=== PATIENT | male | born 1965 | race Caucasian/White ===

== ENCOUNTER 2023-10-11 11:12 | Emergency (ER) | payer BC, OTHER ==
--- NOTE | 2023-10-11 11:25 | ED ---
Skin/Abscess/FB HPI - General Chief complaint: Skin/Abscess/Foreign Body Stated complaint: skin issues B hands/arms/feet Time Seen by Provider: 10/11/23 11:25 Source: patient, RN notes reviewed Mode of arrival: ambulatory Limitations: no limitations - History of Present Illness Initial comments: This is a 58-year-old male presents emergency department chief complaint of skin manifestations that are pruritic. Patient states that he was evaluated at [facility] on Monday he was diagnosed with scabies and sent home with antibiotics, topical antifungal cream and topical antiparasitic ointment. Patient states that the peritonitis and rash has worsened since weekend is complaining of peeling on his palms and feet. He states that he has tried use emollients at home with no relief. He denies fevers, chills, nausea, vomiting, abdominal pain, shortness of breath, difficulty breathing, headaches. Denies use of new soaps, lotions, detergents, perfumes, medications. MD complaint: rash, lesion - Related Data Previous Rx's Medication Instructions Recorded Promethazine [Phenergan] 25 mg PO Q6HR #5 tablet 12/04/14 Ivermectin 3 mg PO ONETIME #2 tablet 10/11/23 Allergies Allergy/AdvReac Type Severity Reaction Status Date / Time No Known Allergies Allergy Verified 12/04/14 11:22 Review of Systems ROS Statement: Those systems with pertinent positive or pertinent negative responses have been documented in the HPI. ROS Other: All systems not noted in ROS Statement are negative. 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 and Developmental dysplasia of the hip (DDH), History of Any Multi-Drug Resistant Organisms: None Reported Past Surgical History: Adenoidectomy, Joint Replacement, Orthopedic Surgery Additional Past Surgical History / Comment(s): Bones removed from ankles Past Psychological History: No Psychological Hx Reported Smoking Status: Current every day smoker Past Alcohol Use History: None Reported Past Drug Use History: Marijuana General Exam Limitations: no limitations General appearance: alert, in no apparent distress, cachectic Head exam: Present: atraumatic, normocephalic, normal inspection Eye exam: Present: normal appearance, PERRL, EOMI. Absent: scleral icterus, conjunctival injection, periorbital swelling ENT exam: Present: normal exam, mucous membranes moist Neck exam: Present: normal inspection. Absent: tenderness, meningismus, lymphadenopathy Respiratory exam: Present: normal lung sounds bilaterally. Absent: respiratory distress, wheezes, rales, rhonchi, stridor Cardiovascular Exam: Present: regular rate, normal rhythm, normal heart sounds. Absent: systolic murmur, diastolic murmur, rubs, gallop, clicks GI/Abdominal exam: Present: soft, normal bowel sounds. Absent: distended, tenderness, guarding, rebound, rigid Extremities exam: Present: normal inspection, full ROM, normal capillary refill. Absent: tenderness, pedal edema, joint swelling, calf tenderness Back exam: Present: normal inspection Neurological exam: Present: alert, oriented X3, CN II-XII intact Psychiatric exam: Present: normal affect, normal mood Expanded Distribution of rash: generalized, involves palms/soles, RUE, LUE, RLE, LLE Description of rash: Present: erythematous, macular, crusting, other (exematous) Course Vital Signs 10/11/23 10/11/23 11:13 12:48 Temperature 98.7 F 97.8 F Pulse Rate 92 67 Respiratory 18 20 Rate Blood Pressure 149/74 131/80 O2 Sat by Pulse 99 98 Oximetry Medical Decision Making - Medical Decision Making Was pt. sent in by a medical professional or institution (DUSTIN Suggs, ACADEMIC RECORDS SPECIALIST, urgent care, hospital, or long term...) When possible be specific @ -No Did you speak to anyone other than the patient for history (EMS, parent, family, police, friend...)? What history was obtained from this source @ -No Did you review nursing and triage notes (agree or disagree)? Why? @ -I reviewed and agree with nursing and triage notes Were old charts reviewed (outside hosp., previous admission, EMS record, old EKG, old radiological studies, urgent care reports/EKG's, long term records)? Report findings @ -No old charts were reviewed Differential Diagnosis (chest pain, altered mental status, abdominal pain women, abdominal pain men, vaginal bleeding, weakness, fever, dyspnea, syncope, headache, dizziness, GI bleed, back pain, seizure, CVA, palpatations, mental health, musculoskeletal)? @ -Contact dermatitis, allergic dermatitis, eczema, serpiginous rash, this list is not all inclusive EKG interpreted by me (3pts min.). @ -None X-rays interpreted by me (1pt min.). @ -None done CT interpreted by me (1pt min.). @ -None done U/S interpreted by me (1pt. min.). @ -None done What testing was considered but not performed or refused? (CT, X-rays, U/S, labs)? Why? @ -None What meds were considered but not given or refused? Why? @ -None Did you discuss the management of the patient with other professionals (professionals i.e. DrHeriberto, PA, ACADEMIC RECORDS SPECIALIST, lab, RT, psych nurse, social media marketer, parks and recreation worker, teacher, special officer, binder caser)? Give summary @ -No Was smoking cessation discussed for >3mins.? @ -No Was critical care preformed (if so, how long)? @ -No Were there social determinants of health that impacted care today? How? (Homelessness, low income, unemployed, alcoholism, drug addiction, transportation, low edu. Level, literacy, decrease access to med. care, intermediate, rehab)? @ -No Was there de-escalation of care discussed even if they declined (Discuss DNR or withdrawal of care, Hospice)? DNR status @ -No What co-morbidities impacted this encounter? (DM, HTN, Smoking, COPD, CAD, Cancer, CVA, ARF, Chemo, Hep., AIDS, mental health diagnosis, sleep apnea, mo rbid obesity)? @ -None Was patient admitted / discharged? Hospital course, mention meds given and ro dieudonne, prescriptions, significant lab abnormalities, going to OR and other pertinent info. @ -Charge. 58-year-old male with a generalized pruritic rash. Exam is consistent with widespread scabies rash. Additionally, patient is noted to have athlete's foot of the feet. He is provided with a dose of Benadryl to control itching pending labs. CBC, CMP and lactate within normal limits. Patient will be sent a prescription for oral ivermectin that he will take 1 tablet now and the next dose in a week. He is also provided with a dose of steroids to help decrease inflammation. Recommend that patient continue use of antibiotics and use topical cream of antifungal on the feet to continue with athlete's foot. All questions answered at bedside and strict return parameters discussed with the patient he is verbalized understanding. Recommend he follow-up with his primary care provider next week for further evaluation. Case discussed with Dr. Trevizo Undiagnosed new problem with uncertain prognosis? @ -No Drug Therapy requiring intensive monitoring for toxicity (Heparin, Nitro, Insulin, Cardizem)? @ -No Were any procedures done? @ -No Diagnosis/symptom? @ -tinea pedis, scabies manifestation Acute, or Chronic, or Acute on Chronic? @ -acute Uncomplicated (without systemic symptoms) or Complicated (systemic symptoms)? @ -uncomplicated Side effects of treatment? @ -No Exacerbation, Progression, or Severe Exacerbation? @ -No Poses a threat to life or bodily function? How? (Chest pain, USA, SD, pneumonia, PE, COPD, DKA, ARF, appy, cholecystitis, CVA, Diverticulitis, Homicidal, Suicidal, threat to staff... and all critical care pts) @ -No - Lab Data Result diagrams: 10/11/23 12:05 10/11/23 12:05 Lab Results 10/11/23 10/11/23 10/11/23 Range/Units 12:05 12:05 12:05 WBC 10.2 (3.8-10.6) k/uL RBC 4.96 (4.30-5.90) m/uL Hgb 15.4 (13.0-17.5) gm/dL Hct 46.8 (39.0-53.0) % MCV 94.3 (80.0-100.0) fL MCH 31.1 (25.0-35.0) pg MCHC 32.9 (31.0-37.0) g/dL RDW 13.3 (11.5-15.5) % Plt Count 335 (150-450) k/uL MPV 7.4 Neutrophils % 68 % Lymphocytes % 18 % Monocytes % 6 % Eosinophils % 6 % Basophils % 1 % Neutrophils # 7.0 (1.3-7.7) k/uL Lymphocytes # 1.8 (1.0-4.8) k/uL Monocytes # 0.6 (0-1.0) k/uL Eosinophils # 0.6 (0-0.7) k/uL Basophils # 0.1 (0-0.2) k/uL Sodium 136 L (137-145) mmol/L Potassium 4.5 (3.5-5.1) mmol/L Chloride 109 H (98-107) mmol/L Carbon Dioxide 16 L (22-30) mmol/L Anion Gap 11 mmol/L BUN 18 (9-20) mg/dL Creatinine 0.75 (0.66-1.25) mg/dL Est GFR (CKD-EPI)AfAm >90 (>60 ml/min/1.73 sqM) Est GFR (CKD-EPI)NonAf >90 (>60 ml/min/1.73 sqM) Glucose 87 (74-99) mg/dL Plasma Lactic Acid Asher 1.1 (0.7-2.0) mmol/L Calcium 9.5 (8.4-10.2) mg/dL Total Bilirubin 0.7 (0.2-1.3) mg/dL AST 20 (17-59) U/L ALT 11 (4-49) U/L Alkaline Phosphatase 68 (38-126) U/L Total Protein 6.9 (6.3-8.2) g/dL Albumin 4.6 (3.5-5.0) g/dL Disposition Clinical Impression: Tinea pedis, Infestation by Sarcoptes scabiei Disposition: HOME SELF-CARE Condition: Good Instructions (If sedation given, give patient instructions): Scabies (ED) Additional Instructions: Return to the emergency department for any new or worsening symptoms. Take 1 dose of ivermectin now and second dose in 7 days. Recommend follow-up with your primary care provider next week for further evaluation. Prescriptions: Ivermectin 3 mg PO ONETIME #2 tablet Is patient prescribed a controlled substance at d/c from ED?: No Referrals: None,Stated [Primary Care Provider] - 1-2 days Time of Disposition: 13:09
[2023-10-11 12:43] LABS: Basophils # (A) 0.1 k/uL (0-0.2); Basophils % (A) 1 %; Eosinophils # (A) 0.6 k/uL (0-0.7); Eosinophils % (A) 6 %; HCT 46.8 % (39.0-53.0); HGB 15.4 gm/dL (13.0-17.5); Lymphocytes # (A) 1.8 k/uL (1.0-4.8); Lymphocytes % (A) 18 %; MCH 31.1 pg (25.0-35.0); MCHC 32.9 g/dL (31.0-37.0); MCV 94.3 fL (80.0-100.0); Mean Platelet Volume 7.4; Monocytes # (A) 0.6 k/uL (0-1.0); Monocytes % (A) 6 %; Neutrophils % (A) 68 %; Platelet Count 335 k/uL (150-450); RBC 4.96 m/uL (4.30-5.90); RDW 13.3 % (11.5-15.5); WBC 10.2 k/uL (3.8-10.6)
[2023-10-11] MEDS: diphenhydrAMINE 50 MG/ML 1 ML VIAL IVP STA (12:44)
[2023-10-11 12:48] VITALS: BP 131/80; PULSE 67; RESP 20; TEMP 97.8
[2023-10-11 12:56] LABS: ALT 11 U/L (4-49); AST 20 U/L (17-59); African American GFR (CKD) >90 (>60 ml/min/1.73 sqM); Albumin 4.6 g/dL (3.5-5.0); Alkaline Phosphatase 68 U/L (38-126); Anion Gap 11 mmol/L; Blood Urea Nitrogen 18 mg/dL (9-20); Calcium 9.5 mg/dL (8.4-10.2); Carbon Dioxide 16 mmol/L (22-30); Chloride 109 mmol/L (98-107); Glucose 87 mg/dL (74-99); Non-African American GFR(CKD) >90 (>60 ml/min/1.73 sqM); Potassium 4.5 mmol/L (3.5-5.1); Sodium 136 mmol/L (137-145); Total Bilirubin 0.7 mg/dL (0.2-1.3); Total Protein 6.9 g/dL (6.3-8.2)
[2023-10-11] MEDS: methylPREDNISolone SOD SUCCI 125 MG/2 ML VIAL IV STA (13:17)
== END 2023-10-11 13:27 | disposition home or self-care (01) ==
LOC: EC 11:12
DX: B35.3 Tinea pedis (principal); B86 Scabies; F17.200 Nicotine dependence, unspecified, uncomplicated
CPT/HCPCS: 36415; 80053; 83605; 85025; 99283; 96374; 96375; J1200; J2919

== ENCOUNTER 2023-10-27 12:00 | Emergency (ER) | payer BC ==
[2023-10-27] MEDS ORDERED: CEPHALEXIN 500 MG CAP ONE (12:58)
[2023-10-27] MEDS ORDERED: CLINDAMYCIN 150 MG CAP ONE (12:59)
== END 2023-10-27 13:22 | disposition home or self-care (01) ==
LOC: EC 12:00
CPT/HCPCS: 99282